=== PATIENT | male | born 1990 | race African-American/Black ===

== ENCOUNTER 2021-08-16 10:42 | Emergency (ER) | payer SELFPAY ==
[~2021-08-16] VITALS: Ht 177.8 cm; Wt 77.0 kg
[2021-08-16] MEDS ORDERED: IBUP-2029 MT (11:03)
[2021-08-16 11:06] VITALS: BP 121/73
[2021-08-16] MEDS ORDERED: IBUPROFEN 600MG TABLET PO ONE (11:15)
== END 2021-08-16 11:12 | disposition home or self-care (01) ==
LOC: ER 10:42
DX: S16.1XXA Strain of muscle, fascia and tendon at neck level, initial encounter (principal); S39.012A Strain of muscle, fascia and tendon of lower back, initial encounter; V43.52XA Car driver injured in collision with other type car in traffic accident, initial encounter; Y93.89 Activity, other specified; Y92.488 Other paved roadways as the place of occurrence of the external cause
CPT/HCPCS: 99282